=== PATIENT | male | born 1955 | race Caucasian/White ===

== ENCOUNTER → 2024-02-17 | Outpatient (CLI) | payer MEDICARE, BC, SELFPAY ==
[2024-02-17 16:09] LABS: Basophils % (Auto) 0 % (0-2.5); Eosinophils % (Auto) 0 % (0-10); Hematocrit 45.4 % (41.0-53.0); Hemoglobin 15.4 g/dL (13.5-16.0); Immature Granulocytes % (Auto) 0 % (0-0); Immature Granulocytes Auto 0.03 Thou/mm3 (0.00-0.00); Lymphocytes # (Auto) 1.3 Thou/mm3 (1.0-4.8); Lymphocytes % (Auto) 16 % (10-50); Mean Corpuscular HGB Conc 33.9 g/dl (31.0-37.0); Mean Corpuscular Volume 92 fL (80-100); Monocytes # (Auto) 0.7 Thou/mm3 (0.0-0.8); Monocytes % (Auto) 8 % (0-12); Neutrophils # (Auto) 6.2 Thou/mm3 (1.8-7.7); Neutrophils % (Auto) 75 % (37-80); Nucleated Red Blood Cell % 0 /100 WBC (0); Platelet Count 224 Thou/mm3 (140-440); RDW Standard Deviation 46.5 fL (35.1-43.9); Red Blood Count 4.96 Miln/mm3 (4.50-5.90); White Blood Count 8.3 Thou/mm3 (3.8-10.6)
[2024-02-17 16:27] LABS: Collection Type, Urine Clean Catch; Squamous Epithelial Cell,Urine 0 /hpf (0-5)
[2024-02-17 16:35] LABS: Alanine Aminotransferase 24 U/L (10-49); Albumin, Serum 4.3 gm/dL (3.4-4.8); Alkaline Phosphatase 116 U/L (46-116); Anion Gap 9 (7-16); Aspartate Amino Transferase 21 U/L (0-34); BUN/Creatinine Ratio 22 Ratio (12-20); Bilirubin,Direct 0.2 mg/dL (0.0-0.3); Bilirubin,Total 0.5 mg/dL (0.3-1.2); Blood Urea Nitrogen 11 mg/dL (9-23); Calcium 9.1 mg/dL (8.3-10.6); Carbon Dioxide 28.6 mMol/L (20.0-31.0); Chloride 101 mMol/L (98-107); Creatinine (Component) 0.5 mg/dL (0.6-1.3); Glucose 109 mg/dL (74-106); Osmolality,Calculated 277 (275-295); Phosphorous 2.8 mg/dL (2.4-5.1); Potassium 3.8 mMol/L (3.4-5.1); Sodium 139 mMol/L (136-145); Total Protein 6.6 gm/dL (5.7-8.2); eGFR > 60 See Note
[2024-02-17 16:51] LABS: Bilirubin,Urine Negative (Negative); Blood,Urine Negative (Negative); Color,Urine Yellow (Lt Yel-Yel); Glucose, Urine Negative (Negative); Ketones,Urine 2+ (Negative); Leukocyte Esterase,Urine Positive (Negative); Nitrite,Urine Positive (Negative); Protein,Urine Negative (Neg - Trace); RBC,Urine 5 /hpf (0-3); Urobilinogen,Urine Negative mg/dL (0.0-1.0); WBC,Urine 61 /hpf (0-5)
[2024-02-17 17:14] LABS: Clarity,Urine Hazy (Clear/Hazy)
== END | disposition home or self-care (01) ==
LOC: COPL 15:10
PROVIDERS: PCP Family Medicine; Referring Provider Family Medicine; Visit Provider Family Medicine
DX: E88.9 Metabolic disorder, unspecified (principal); E34.9 Endocrine disorder, unspecified; R53.81 Other malaise
CPT/HCPCS: 36415; 80048; 80076; 81001; 84100; 85025

== ENCOUNTER 2024-12-29 14:53 | Emergency (ER) | payer MEDICARE, BC, SELFPAY ==
[2024-12-29] VITALS (7 sets, daily range): BP systolic 111–133; BP diastolic 50–72; PULSE 74–91; RESP 16–18; TEMP 36.9–37.5; O2SAT 94–100; BMI 22.8
--- NOTE | 2024-12-29 15:28 | XR_ITS ---
Examination: CT abdomen with intravenous contrast CT pelvis with intravenous contrast 2-D coronal reconstructions 2-D sagittal reconstructions Date and time of exam: December 29, 2024, 1735 hours, comparison September 02, 2015 INDICATIONS: Sacral necrotic soft tissue nonhealing lesion months. CTDI: vol (mGy) 10.1 DLP: (mGycm) 535 Technique: Multiple axial sections of the abdomen and pelvis have been obtained. 64 slice high-resolution scanner used. 3 mm axial sections have been obtained, post intravenous injection 60 cc Isovue-370 2-D sagittal, coronal reconstructions obtained. Low dose protocols were performed. One or more of the following dose reduction techniques were used; automated exposure control, adjustment of the mA and/or KV according to patient size, use of iterative reconstruction technique. Findings: Small liver cysts No biliary tract dilatation Common bile duct 3 mm No pancreatic or adrenal mass No renal or ureteral calculi, no hydronephrosis Aortic calcification no aneurysmal dilatation Normal appendix Abundant stool in the colon Urinary bladder wall thickening up to 8 mm Transverse prostate dimension 4.4 cm Marked thickening of the rectal wall up to 18 mm Large soft tissue ulcer posterior to the right hip destroying cortex of the greater trochanter right hip with surrounding soft tissue infectious mass although no fluid-filled drainable abscess This large soft tissue defect also extends to the posterior right ischium with prominent bone destruction extending into the right inferior pubic ramus Soft tissue infectious focus posterior to the left ischium with osteomyelitis left ischium Soft tissue ulcer defect posterior to the sacral segments with cortical erosions axial images 209 mid sacral segments Also osteomyelitis destroying the L5 posterior spinous process, sagittal image 139 IMPRESSION: Marked thickening of the rectal wall, consider proctitis Large soft tissue ulcer posterior to the right hip destroying cortex of the greater trochanter Large soft tissue defect posterior to the right ischium destroying right ischium and inferior pubic ramus Soft tissue infectious focus posterior to the left ischium with osteomyelitis left ischium Soft tissue infection posterior to mid sacral segments with cortical erosions involving mid sacral segments posteriorly Osteomyelitis destroying the L5 posterior spinous process
--- NOTE | 2024-12-29 15:29 | XR_ITS ---
Examination: Foot bilateral, 6 views Technique: AP, oblique, lateral views of each foot total 6 views Date and time of exam: December 29, 2024 at 1542 hours INDICATIONS: Redness swelling and pain involving both feet, nonhealing sores FINDINGS: Severe osteopenia Soft tissue swelling dorsum of the right and left foot Early cortical erosion involving the posterior calcaneus bilaterally with soft tissue defects IMPRESSION: Early osteomyelitis involving posterior calcaneus bilaterally, consider bilateral MRI foot films follow-up .
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
[2024-12-29] MEDS: PIPER/TAZO INJ 4.5 GM in SODIUM CHLORIDE 0.9% (POP) 100 ML IV (16:15)
--- NOTE | 2024-12-29 16:27 | PC.NURSE ---
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
[2024-12-29 16:30] LABS: Basophils # (Auto) 0.0 Thou/mm3 (0.0-0.2); Basophils % (Auto) 0 % (0-2.5); Eosinophils # (Auto) 0.1 Thou/mm3 (0.0-0.5); Eosinophils % (Auto) 2 % (0-10); Hematocrit 35.3 % (41.0-53.0); Hemoglobin 10.8 g/dL (13.5-16.0); Immature Granulocytes Auto 0.04 Thou/mm3 (0.00-0.00); Lymphocytes # (Auto) 1.4 Thou/mm3 (1.0-4.8); Lymphocytes % (Auto) 24 % (10-50); Mean Corpuscular HGB Conc 30.6 g/dl (31.0-37.0); Mean Corpuscular Hemoglobin 26.7 pg (25.0-35.0); Mean Corpuscular Volume 87 fL (80-100); Monocytes # (Auto) 0.6 Thou/mm3 (0.0-0.8); Monocytes % (Auto) 10 % (0-12); Neutrophils # (Auto) 3.7 Thou/mm3 (1.8-7.7); Neutrophils % (Auto) 63 % (37-80); Nucleated Red Blood Cell # 0.00 Thou/mm3 (0.00-0.00); Nucleated Red Blood Cell % 0 /100 WBC (0); Platelet Count 410 Thou/mm3 (140-440); RDW Standard Deviation 50.6 fL (35.1-43.9); Red Blood Count 4.04 Miln/mm3 (4.50-5.90); White Blood Count 5.9 Thou/mm3 (3.8-10.6)
[2024-12-29 16:47] LABS: Sed Rate (ESR) 114 mm/hr (0-20)
[2024-12-29 16:52] LABS: Alanine Aminotransferase < 7 U/L (10-49); Albumin, Serum 3.3 gm/dL (3.4-4.8); Albumin/Globulin Ratio 1.1 (1.2-2.2); Alkaline Phosphatase 114 U/L (46-116); Anion Gap 7 (7-16); Aspartate Amino Transferase 11 U/L (0-34); BUN/Creatinine Ratio 10 Ratio (12-20); Bilirubin,Total 0.3 mg/dL (0.3-1.2); Blood Urea Nitrogen < 5 mg/dL (9-23); C-Reactive Protein 14.2 mg/dL (0.0-0.9); Calcium 8.4 mg/dL (8.3-10.6); Calcium (Corrected) 9.0 mg/dL (8.5-10.1); Carbon Dioxide 31.1 mMol/L (20.0-31.0); Chloride 104 mMol/L (98-107); Creatinine (Component) 0.5 mg/dL (0.6-1.3); Estimated Creatinine Clearance 138.0 mL/min (>60); Globulin 2.9 gm/dL (2.3-3.5); Glucose 131 mg/dL (74-106); Osmolality,Calculated 282 (275-295); Potassium 3.8 mMol/L (3.4-5.1); Sodium 142 mMol/L (136-145); Total Protein 6.2 gm/dL (5.7-8.2); eGFR > 60 See Note
[2024-12-29] MEDS: VANCOMYCIN/NS 1 GM IVPB 200 ML IV (16:58)
[2024-12-29] MEDS: BACLOFEN 10 MG TABLET PO (18:24)
--- NOTE | 2024-12-29 20:00 | PC.NURSE ---
Pt awake/alert/oriented x3. Respirations are even and unlabored. No s/s of acute distress noted. Waffle mattress placed, pt tolerated well. Repositioned pt. Call light within reach. Plan of care ongoing.
--- NOTE | 2024-12-29 22:27 | PC.NURSE ---
Transfer initiated requiring Ortho. we do not have coverage for the month of December. Pt has Osteomyelitis of Pelvis, bilateral ankles, L5 spinal process, and extensive cellulitis on his Right Hip. Clinicals sent to [facility]. Rajput transfered to MD ANDRE for EMTALA questions. Tong stated they are trying to get Diane their Ortho Surgeon.
--- NOTE | 2024-12-29 23:06 | PD.EDADDENDU ---
Emergency Room Addendum <Sarah Jaime - Last Filed: 12/30/24 02:35> Addendum Narrative: I took over the care from previous shift physician at 11 PM on 12/29/2024. See previous notes for complete H & P and ED course. I reviewed all diagnostic test results. My interpretation of the Foot x-ray is Early osteomyelitis involving posterior calcaneus bilaterally, consider bilateral MRI foot films follow-up. My review of the Abdomen/Pelvis CT report is Marked thickening of the rectal wall, consider proctitis. Large soft tissue ulcer posterior to the right hip destroying cortex of the greater trochanter. Large soft tissue defect posterior to the right ischium destroying right ischium and inferior pubic ramus. Soft tissue infectious focus posterior to the left ischium with osteomyelitis left ischium. Soft tissue infection posterior to mid sacral segments with cortical erosions involving mid sacral segments posteriorly. Osteomyelitis destroying the L5 posterior spinous process. Blood tests and urine tests Diagnoses include: Treatment here included 23:30 - I discussed the case with Mikel Fink About the presentation and exam and diagnostics and treatments here. And need of further care in their hospital. Patient pending transfer to tertiary facility with orthopedic capabilities. Signed out to Dr. Shah at 6 AM. Robert Gomez MD <Robert Gomez MD - Last Filed: 12/30/24 02:54> Addendum Narrative: I took over the care from previous shift physician, Dr. Fortune, at 11 PM on 12/29/2024. See previous notes for complete H & P and ED course. I reviewed all diagnostic test results. Diagnoses include: L5 osteomyelitis Left ischium osteomyelitis Sacral infection with cortical erosions Right ischium defect Iinferior pubic ramus defect Bilateral calcaneus osteomyelitis Right hip ulcer Right greater trochanter defect Treatment here included: Vancomycin Zosyn 23:30 - I discussed the case with Mikel Fink About the presentation and exam and diagnostics and treatments here. And need of further care there. Will review further and contact us. At 6 AM on 12/30/2024, the care of the patient was transferred to Dr. SHAH. During my watch, the patient remained stable. Robert Gomez MD
--- NOTE | 2024-12-29 23:36 | PC.NURSE ---
[facility] REJECTS AT THIS MOMENT STATING NO NEED FOR EMERGENT TRANSFER. JES REQUESTING TO TRY [facility]. INITIATED TRANSFER WITH [facility] STATED THEY DONT HAVE ORTHO COVERAGE UNTIL THE AM. WILL OPEN CASE AND WAIT TO HEAR BACK FROM THEM.
[2024-12-30] VITALS (9 sets, daily range): BP systolic 103–141; BP diastolic 45–71; PULSE 74–87; RESP 16–18; TEMP 36.7–37.6; O2SAT 95–100
--- NOTE | 2024-12-30 03:27 | PC.NURSE ---
Patient presents with an unstageable sacral pressure injury covered with eschar and slough, with drainage and odor. Bilateral heel/ankle Stage 2 pressure injuries observed with partial-thickness skin loss and moderate purulent yellow drainage, mild erythema, and faint odor noted. All dressings were removed, wounds were cleansed and new dressings were applied. Patient was repositioned to offload pressure areas, and heel protectors were applied. Patient tolerated dressing changes with minimal discomfort (pain 3/10).
[2024-12-30] MEDS: BACLOFEN 10 MG TABLET 20 MG PO ×3 (06:00→18:05)
--- NOTE | 2024-12-30 06:22 | PC.NURSE ---
[facility] declined due to region, states their ortho declined due to it their orthopedist not being able to do sacral and ischeal ulcers. Transfer Nurse states they recommend a plastic Surgeon.
--- NOTE | 2024-12-30 06:34 | PD.EDADDENDU ---
Emergency Room Addendum Addendum Narrative: 0600: Care assumed from Dr. Gomez, the previous shift emergency physician. Past medical, surgical, social and family history reviewed. Vitals and home medications reviewed. I will assume the care of the patient at this time, pending transfer. Please refer to the emergency department record for history and examination from initial visit.? Physical exam by me shows patient under no acute distress at this time. 0750: Spoke to Pippa from [facility]. 1014: Discussed test HPI, PMHx, lab, radiology results and/or management with Dr. Chung. He states we have no ortho sfdc solution architect and he recommends ortho for bone debridement. 1116: Discussed test HPI, PMHx, lab, radiology results and/or management with ortho Dr. Juares from the [facility] group. Their facilities do not have the capabilities the patient needs. 1143: Spoke to the [facility] transfer nurse, they are reviewing the case. 1732: [facility] declined. [facility] is still reviewing the case. [facility] is at capacity but they are still present the case to the doctors. 1800: Patient was signed out to the leather scrubber provider. Past medical, surgical, social and family history reviewed. Vitals and home medications reviewed. Results and treatment plan discussed. They will assume the care of the patient at this time and will follow the patient. Results Objective Laboratory: Laboratory Last Values WBC 5.9 Thou/mm3 (3.8-10.6) 12/29/24 16:05 RBC 4.04 Miln/mm3 (4.50-5.90) L 12/29/24 16:05 Hgb 10.8 g/dL (13.5-16.0) L 12/29/24 16:05 Hct 35.3 % (41.0-53.0) L 12/29/24 16:05 MCV 87 fL (80-100) 12/29/24 16:05 MCH 26.7 pg (25.0-35.0) 12/29/24 16:05 MCHC 30.6 g/dl (31.0-37.0) L 12/29/24 16:05 RDW Std Deviation 50.6 fL (35.1-43.9) H 12/29/24 16:05 Plt Count 410 Thou/mm3 (140-440) 12/29/24 16:05 Neut % (Auto) 63 % (37-80) 12/29/24 16:05 Lymph % (Auto) 24 % (10-50) 12/29/24 16:05 Garfield % (Auto) 10 % (0-12) 12/29/24 16:05 Eos % (Auto) 2 % (0-10) 12/29/24 16:05 Baso % (Auto) 0 % (0-2.5) 12/29/24 16:05 Neut # (Auto) 3.7 Thou/mm3 (1.8-7.7) 12/29/24 16:05 Lymph # (Auto) 1.4 Thou/mm3 (1.0-4.8) 12/29/24 16:05 Garfield # (Auto) 0.6 Thou/mm3 (0.0-0.8) 12/29/24 16:05 Eos # (Auto) 0.1 Thou/mm3 (0.0-0.5) 12/29/24 16:05 Baso # (Auto) 0.0 Thou/mm3 (0.0-0.2) 12/29/24 16:05 Immature Gran # (Auto) 0.04 Thou/mm3 (0.00-0.00) H 12/29/24 16:05 Absolute Nucleated RBC 0.00 Thou/mm3 (0.00-0.00) 12/29/24 16:05 Immature Gran % 1 % (0-0) H 12/29/24 16:05 Nucleated RBC % 0 /100 WBC (0) 12/29/24 16:05 ESR 114 mm/hr (0-20) H 12/29/24 16:05 Sodium 142 mMol/L (136-145) 12/29/24 16:05 Potassium 3.8 mMol/L (3.4-5.1) 12/29/24 16:05 Chloride 104 mMol/L (98-107) 12/29/24 16:05 Carbon Dioxide 31.1 mMol/L (20.0-31.0) H 12/29/24 16:05 Anion Gap 7 (7-16) 12/29/24 16:05 BUN < 5 mg/dL (9-23) L 12/29/24 16:05 Creatinine 0.5 mg/dL (0.6-1.3) L 12/29/24 16:05 Estim Creat Clear Calc 138.0 mL/min (>60) 12/29/24 16:05 eGFR > 60 See Note (60-) 12/29/24 16:05 BUN/Creatinine Ratio 10 Ratio (12-20) L 12/29/24 16:05 Glucose 131 mg/dL (74-106) H 12/29/24 16:05 Calculated Osmolality 282 (275-295) 12/29/24 16:05 Calcium 8.4 mg/dL (8.3-10.6) 12/29/24 16:05 Corrected Calcium 9.0 mg/dL (8.5-10.1) 12/29/24 16:05 Total Bilirubin 0.3 mg/dL (0.3-1.2) 12/29/24 16:05 AST 11 U/L (0-34) 12/29/24 16:05 ALT < 7 U/L (10-49) L 12/29/24 16:05 Alkaline Phosphatase 114 U/L (46-116) 12/29/24 16:05 C-Reactive Prot, Quant 14.2 mg/dL (0.0-0.9) H 12/29/24 16:05 Total Protein 6.2 gm/dL (5.7-8.2) 12/29/24 16:05 Albumin 3.3 gm/dL (3.4-4.8) L 12/29/24 16:05 Globulin 2.9 gm/dL (2.3-3.5) 12/29/24 16:05 Albumin/Globulin Ratio 1.1 (1.2-2.2) L 12/29/24 16:05 Imaging: Procedure(s): XR foot comp BI min 3V Accession Number(s): [id number] cc: Ted Rutherford DO; Justin Duron MD; Diana Fortune MD~ Examination: Foot bilateral, 6 views Technique: AP, oblique, lateral views of each foot total 6 views Date and time of exam: December 29, 2024 at 1542 hours INDICATIONS: Redness swelling and pain involving both feet, nonhealing sores FINDINGS: Severe osteopenia Soft tissue swelling dorsum of the right and left foot Early cortical erosion involving the posterior calcaneus bilaterally with soft tissue defects IMPRESSION: Early osteomyelitis involving posterior calcaneus bilaterally, consider bilateral MRI foot films follow-up . Dictated By: Justin Duron MD Procedure(s): CT abdomen pelvis w con Accession Number(s): [id number] cc: Ted Rutherford DO; Justin Duron MD; Diana Fortune MD~ Examination: CT abdomen with intravenous contrast CT pelvis with intravenous contrast 2-D coronal reconstructions 2-D sagittal reconstructions Date and time of exam: December 29, 2024, 1735 hours, comparison September 02, 2015 INDICATIONS: Sacral necrotic soft tissue nonhealing lesion months. CTDI: vol (mGy) 10.1 DLP: (mGycm) 535 Technique: Multiple axial sections of the abdomen and pelvis have been obtained. 64 slice high-resolution scanner used. 3 mm axial sections have been obtained, post intravenous injection 60 cc Isovue-370 2-D sagittal, coronal reconstructions obtained. Low dose protocols were performed. One or more of the following dose reduction techniques were used; automated exposure control, adjustment of the mA and/or KV according to patient size, use of iterative reconstruction technique. Findings: Small liver cysts No biliary tract dilatation Common bile duct 3 mm No pancreatic or adrenal mass No renal or ureteral calculi, no hydronephrosis Aortic calcification no aneurysmal dilatation Normal appendix Abundant stool in the colon Urinary bladder wall thickening up to 8 mm Transverse prostate dimension 4.4 cm Marked thickening of the rectal wall up to 18 mm Large soft tissue ulcer posterior to the right hip destroying cortex of the greater trochanter right hip with surrounding soft tissue infectious mass although no fluid-filled drainable abscess This large soft tissue defect also extends to the posterior right ischium with prominent bone destruction extending into the right inferior pubic ramus Soft tissue infectious focus posterior to the left ischium with osteomyelitis left ischium Soft tissue ulcer defect posterior to the sacral segments with cortical erosions axial images 209 mid sacral segments Also osteomyelitis destroying the L5 posterior spinous process, sagittal image 139 IMPRESSION: Marked thickening of the rectal wall, consider proctitis Large soft tissue ulcer posterior to the right hip destroying cortex of the greater trochanter Large soft tissue defect posterior to the right ischium destroying right ischium and inferior pubic ramus Soft tissue infectious focus posterior to the left ischium with osteomyelitis left ischium Soft tissue infection posterior to mid sacral segments with cortical erosions involving mid sacral segments posteriorly Osteomyelitis destroying the L5 posterior spinous process Dictated By: Justin Duron MD
--- NOTE | 2024-12-30 07:14 | PC.CC ---
Addendum entered by Christiano Fierro RN 12/30/24 19:30: Transfer packet w/ CDX1 given to dental assistant medical assistant Lydia - handoff given. Per Dr. Fortune, she spoke to ortho w/ [facility] and he recommended plastics and he is reaching out to the plastic team.? Addendum entered by Christiano Fierro RN 12/30/24 17:33: 1732: spoke to Dr. Shah, status update provided. As of now, [facility] AND [facility] are reviewing. Addendum entered by Christiano Fierro RN 12/30/24 17:17: 1711: received call from Lana garcia/ [facility] TC to f/u if pt still needed to be transferred. Informed her that he still does. Gave her the names of the other facilities who have reviewed and declined and who are reviewing. She stated her MD is still reviewing as well. I provided the ED contact information for any calls after 1929. Addendum entered by Christiano Fierro RN 12/30/24 16:38: 1632: Pino w/ [facility] called back requesting images to be uploaded. She stated they do not have [employer]. She spoke to her film dept and was informed that Bibi Morales would need to have [employer]. I asked her if she can send me a link via email and I can upload the images from the CD, she stated she is unable to send a link. She then stated to wait on the images. After reviewing the clinicals, she will reach out to the general surgery team 1st, then ortho, then team. She will call me back after discussing case with them. Addendum entered by Christiano Fierro RN 12/30/24 16:21: transfer packet created w/ CD X1. Addendum entered by Christiano Fierro RN 12/30/24 15:05: 1452: called [facility], they are having phone issues. I was transferred to the TC, transfer request initiated. No clinicals received, resubmitted clinicals at this time. Addendum entered by Christiano Fierro RN 12/30/24 14:48: 1436: received call from Sandra garcia/ [facility]. pt declined at this time - no ortho has responded. She stated she reached out to 3 different orthopedic doctors. Informed her I will re-submit tomorrow if patient has not been accepted elsewhere. Addendum entered by Christiano Fierro RN 12/30/24 12:32: 1232: attempted multiple times on different phone lines to call [facility] TC, calls unable to go through. Will try again later Addendum entered by Christiano Fierro RN 12/30/24 12:13: 1214: clinicals sent to [facility]. Addendum entered by Christiano Fierro RN 12/30/24 11:47: 1141: received VM from [facility] w/ [facility]. She stated [facility] declined - services not avail, [place] declined - services not avail, and [facility] - services not avail. 1141: Melissa spoke to Dr. Shah. She stated she will review and present to her team and will call back with a determination. 1138: spoke to Melissa garcia/ [facility], transfer initiated. Addendum entered by Christiano Fierro RN 12/30/24 11:35: 1125: clinicals to [facility] went through Addendum entered by Christiano Fierro RN 12/30/24 11:15: 1111: received call from Dr. Shah. She stated she spoke to an orthopedic w/ [facility]. [facility] stated that Dr. Brady Edward was the ortho oncall. Per Dr. Shah, he rec transfer to [facility] for multidisciplinary specilities such as gen nakia, ortho, and plastics. Informed Dr. Shah, [facility] is reviewing. Will send to [facility] as well. Addendum entered by Christiano Fierro RN 12/30/24 11:02: 1055: spoke to [facility] w/ [facility], transfer request made. She will reach out to ortho for peer to peer and call back. 1032: sent clinicals to [facility]. Addendum entered by Christiano Fierro RN 12/30/24 10:02: 1001: Renu garcia/ [facility] called back. She stated [facility] is declining this patient - at capacity. Can check back later this afternoon w/ Emma tijerina. Renu will keep it on their board. Addendum entered by Christiano Fierro RN 12/30/24 09:41: 0928: Pippa spoke to Dr Shah. Plastics recommendations were provided to Dr. Shah. She stated she will reach out the general surgeon oncajit. Addendum entered by Christiano Fierro RN 12/30/24 09:40: 0926: received call back from Pippa garcia/ [facility]. Per Chan (ortho) this is not an ortho case, it's plastics. Per Dr. Taylor Dougherty (plastics), pt can f/u as outpatient once pt is stabilized. Debridement can be done by general surgeon. Outpatient Referral can be sent to: [facility] [address] [address] P: F: - PLEASE FAX REFERRAL Addendum entered by Christiano Fierro RN 12/30/24 09:23: 0917: Spoke to Robbie garcia/ [facility] TC, he confirmed receipt of clinicals and imaging. I did not have to upload images via [employer]. He stated he will have team review and will call back with redetermination 0843: Sent images to [facility] via [employer]. Addendum entered by Christiano Fierro RN 12/30/24 08:52: 0843: sent clinicals to [facility] Addendum entered by Christiano Fierro RN 12/30/24 08:49: 0848: received call from Pippa garcia/ [facility], she is still waiting to here back from [facility]. She has paged him twice. She will call back when she hears back from him. Addendum entered by Christiano Fierro RN 12/30/24 08:41: 0840: received call from Alka garcia/ , she stated [facility] has declined - they are at capacity. Greg diaz states pt needs a HLOC. Addendum entered by Christiano Fierro RN 12/30/24 07:52: 0746: Pippa spoke to Dr. Shah, she will will present to ortho and call back. 0742: spoke to [facility] garcia/ [facility]. 0737: Alka and Dr. Shah discussed case, she will present to ortho and call back. 0734: spoke to Alka garcia/ [facility], transfer initiated. Addendum entered by Christiano Fierro RN 12/30/24 07:34: 0720: spoke Renu garcia/ [facility]. She will review the clinicals and present to ortho. She will call back Original Note: 7013: Sent clinicals and imaging to [facility], GARY, and . CD created 0705: spoke to Dr. Shah regarding consult with Dr. Chung. She stated she could not find it in the notes wither that Dr. Chung had been consulted. She stated since it is affecting he ishium, this will be ortho. She requested to keep trying to transfer.
[2024-12-30] MEDS: PIPER/TAZO 3.375 GM PREMIX 3.375 GM/50 ML BAG IV ×3 (07:30→22:37)
[2024-12-30] MEDS: VANCOMYCIN/NS 1 GM IVPB 200 ML IV ×3 (07:49→22:36)
--- NOTE | 2024-12-30 19:07 | PD.EDADDENDU ---
Emergency Room Addendum <Maria M Canas - Last Filed: 12/30/24 23:26> Addendum Narrative: 1800: Care assumed from Dr. Shah, the previous shift emergency physician. Past medical, surgical, social and family history reviewed. Vitals and home medications reviewed. Results and treatment plan discussed. I will assume the care of the patient at this time and will follow the patient, pending transfer. Please refer to the emergency department record for history and examination from initial visit. Discussed case with [facility]. Discussed patients ED course, exam findings, labs, and radiology results. They state they are at capacity at this time. Discussed case with [facility]. Discussed patients ED course, exam findings, labs, and radiology results. States they will need to consult with their plastics team. Care signed out to Dr. Gomez (emergency physician). Past medical, surgical, social and family history reviewed. Vitals and home medications reviewed. Results and treatment plan discussed. They will assume the care of the patient at this time and will follow the patient, pending transfer. <Diana Fortune MD - Last Filed: 12/30/24 23:34> Addendum Narrative: 1800: Care assumed from Dr. Shah, the previous shift emergency physician. Past medical, surgical, social and family history reviewed. Vitals and home medications reviewed. Results and treatment plan discussed. I will assume the care of the patient at this time and will follow the patient, pending transfer. Please refer to the emergency department record for history and examination from initial visit. Discussed case with [facility]. Discussed patients ED course, exam findings, labs, and radiology results. They state they are at capacity at this time. Discussed case with [facility]. Discussed patients ED course, exam findings, labs, and radiology results. States they will need to consult with their plastics team. Care signed out to Dr. Gomez (emergency physician). Past medical, surgical, social and family history reviewed. Vitals and home medications reviewed. Results and treatment plan discussed. They will assume the care of the patient at this time and will follow the patient, pending transfer.
--- NOTE | 2024-12-30 20:30 | PC.NURSE ---
Pt is alert/oriented x3. Respirations are even and unlabored. No s/s of acute distress noted. Discussed plan of care, verbalized understanding. Bed to lowest position, all belongings and call light within reach.
--- NOTE | 2024-12-30 21:35 | PC.NURSE ---
[facility] Transfer Center Nurse Brian states their plastics deots is nto avalaible to consult at the moment and state they are declining at the moment
[2024-12-30 21:52] LABS: Vancomycin,Trough 15.9 mcg/mL (5.0-10.0)
--- NOTE | 2024-12-30 23:43 | EDNOTE_ITS ---
Emergency Room Addendum <Maria M Canas - Last Filed: 12/31/24 03:01> Addendum Narrative: I took over the care from previous shift physician, Dr. Fortune, at 11:30PM on 12/30/2024. See previous notes for complete H & P and ED course. I reviewed all diagnostic test results. Diagnoses include: L5 osteomyelitis Left ischium osteomyelitis Sacral infection with cortical erosions Right ischium defect Iinferior pubic ramus defect Bilateral calcaneus osteomyelitis Right hip ulcer Right greater trochanter defect Treatment here included: Vancomycin Zosyn At 6 AM on 12/31/2024, the care of the patient was transferred to Dr. PARK. During my watch, the patient remained stable. Robert Gomez MD <Robert Gomez MD - Last Filed: 12/31/24 03:02> Addendum Narrative: I took over the care from previous shift physician, Dr. Fortune, at 11:30PM on 12/30/2024. See previous notes for complete H & P and ED course. I reviewed all diagnostic test results. Diagnoses include: L5 osteomyelitis Left ischium osteomyelitis Sacral infection with cortical erosions Right ischium defect Iinferior pubic ramus defect Bilateral calcaneus osteomyelitis Right hip ulcer Right greater trochanter defect [facility] reviewing to consider accepting patient for further care. At 6 AM on 12/31/2024, the care of the patient was transferred to Dr. PARK. During my watch, the patient remained stable. Robert Gomez MD
[2024-12-31] MEDS: BACLOFEN 10 MG TABLET 20 MG PO ×2 (00:36→06:33)
[2024-12-31 02:05] VITALS: BP 108/51; PULSE 79; RESP 19; TEMP 37.2; O2SAT 97
[2024-12-31 04:00] VITALS: BP 115/56; PULSE 83; RESP 16; TEMP 36.8; O2SAT 95
[2024-12-31 06:31] VITALS: BP 111/55; PULSE 81; RESP 17; TEMP 37.3; O2SAT 98
[2024-12-31] MEDS: VANCOMYCIN/NS 1 GM IVPB 200 ML IV (06:32)
[2024-12-31] MEDS: PIPER/TAZO 3.375 GM PREMIX 3.375 GM/50 ML BAG IV (06:33)
--- NOTE | 2024-12-31 06:45 | PC.NURSE ---
Pt c/o dry cough, requested cough medicine. Respiration are even and unlabored. No s/s of acute distress noted. Dr. Shah made aware, no new orders received at this time.
--- NOTE | 2024-12-31 06:54 | PD.EDADDENDU ---
Emergency Room Addendum <Batsheva Shah MD - Last Filed: 12/31/24 07:39> Addendum Narrative: Discussed with resident at [facility]. Will present to attending. Accepted ED to ED <Priscilapaulino Dial - Last Filed: 12/31/24 10:41> Addendum Narrative: 0600: Care assumed from Dr. Gomez, the previous shift emergency physician. Past medical, surgical, social and family history reviewed. Vitals and home medications reviewed. I will assume the care of the patient at this time, pending transfer. Please refer to the emergency department record for history and examination from initial visit.?The following addendum documentation note is intended to reflect any pending information, findings, or radiology results not included in the patient?s initial chart. Discussed with resident at [facility]. Will present to attending. Accepted ED to ED.
--- NOTE | 2024-12-31 07:13 | PC.ADMIT ---
Per Charge nurse Cat's note, [facility] has declined. 0714: received call from Alda garcia/ [facility] to f/u on status of the patient. Informed her the patient was still in the ED. She stated they are reviewing and will call back with a determination
--- NOTE | 2024-12-31 07:36 | PC.CC ---
Addendum entered by Christiano Fierro RN 12/31/24 12:57: Attempted to call [facility] yael a few times to provide transport ETA, went straight to a busy signal. They had issues with their phone lines yesterday Addendum entered by Christiano Fierro RN 12/31/24 12:56: 0748: transfer packet w/ CDx1 taken to ED and given to optical glass silverer Lanise. Original Note: 0729: informed Dr. Shah. She stated ground transport is appropriate. Will arrange. Printed updated notes to add to the transfer packet. 0728: received call from Naomi garcia/ [facility]. Dr. Bo Camacho accepted pt ED to ED. [facility]. call report to [phone] Per Charge nurse Cat's note, [facility] has declined. 0714: received call from Alda CERVANTES to f/u on status of the patient. Informed her the patient was still in the ED. She stated they are reviewing and will call back with a determination
--- NOTE | 2024-12-31 09:47 | PC.NURSE ---
gave report to raisa at [facility] ER
== END 2024-12-31 09:28 | disposition short-term general hospital (02) ==
PROVIDERS: Emergency Medicine; Emergency Provider Emergency Medicine; PCP Family Medicine
DX: M46.28 Osteomyelitis of vertebra, sacral and sacrococcygeal region (principal)
CPT/HCPCS: 36415; 73630; 74177; 80053; 80202; 85025; 85652; 86140; 87040; 87077; 87186; 96365; 96366; 99283; A4649; J2543; J3373; J3490; Q9967; A9270

== ENCOUNTER → 2025-02-12 | Outpatient (CLI) | payer MEDICARE, SELFPAY | END | disposition home or self-care (01) | LOC: SLDO 16:55 | PROVIDERS: Referring Provider Family Medicine; Visit Provider Family Medicine | DX: L08.9 Local infection of the skin and subcutaneous tissue, unspecified (principal) | CPT/HCPCS: 87070; 87077; 87186; 87205 ==

== ENCOUNTER 2025-02-28 12:56 | Emergency (ER) | payer MEDICARE, SELFPAY ==
[2025-02-28 13:16] VITALS: PULSE 90; RESP 20; O2SAT 98; BMI 21.2
--- NOTE | 2025-02-28 13:31 | XR_ITS ---
EXAMINATION: AP pelvis 2 views TECHNIQUE: AP portable supine pelvis hips in neutral position, AP portable supine pelvis hips abduction position Date and time: February 28, 2025, 1340 hours INDICATIONS: Sacral ulcers FINDINGS: Severe osteopenia Ramy cortical bone destruction involving the ischium on the right No pathologic fracture Suspicious also for erosions involving the greater trochanter right hip IMPRESSION:: Cortical bone destruction right ischium and greater trochanter right hip, please see the CT pelvis December 29, 2024 exam, consider repeat CT pelvis without contrast
--- NOTE | 2025-02-28 13:31 | XR_ITS ---
EXAMINATION: AP chest single view TECHNIQUE: AP portable semiupright chest single view Date and time: February 28, 2025, 1350 hours, comparison 11/15/2015 INDICATIONS: Fever lower back pain today. FINDINGS: Normal heart size Lungs are clear. Prominent osteopenia IMPRESSION: No pneumonia identified
[2025-02-28 13:32] VITALS: BP 103/60; PULSE 88; RESP 18; TEMP 37.5; O2SAT 98
--- NOTE | 2025-02-28 13:36 | PD.EDWOUND ---
ED Wound/Laceration-RME/HPI General Chief Complaint: Wound/Laceration Stated Complaint: BACK/SACRAL WOUND PAIN, FEVER Time Seen by Provider: 02/28/25 13:18 Arrival date/time: 02/28/25 12:56 69-year-old male patient with significant history of paraplegia, 37 years ago, was brought in by EMS for evaluation regarding worsening pressure ulcer x 3 sacrum and bilateral trochanteric area. Patient developed pressure ulcer for several months ago, was transferred to [facility] last December 31 stayed there for more than a month, had multiple debridement and was discharged home. Patient lives alone. Patient told me that he is needing help at this time because the pressure ulcer is getting worse. He told me he had a fever earlier today. Sometimes a friend visit him and help him with a dressing. Initially was followed by wound care nurse however for the last few days, however he was told that the wound is getting worst, and was advised to go to the emergency room. Patient denies any other complaints. Related Data Home Medications ?Medication ?Instructions ?Recorded ?Confirmed baclofen 10 mg tablet 20 mg PO QID MUSCLE SPASM ##0 12/17/13 oxybutynin chloride 5 mg tablet 5 mg PO QID BLADDER SPASM ##0 12/17/13 thyroid (pork) 32.5 mg tablet (WP PO QDAY HYPOTHYROID ##0 12/17/13 Thyroid) Previous Rx's ?Medication ?Instructions ?Recorded ibuprofen 600 mg tablet 600 mg PO Q8HR PRN PAIN #30 tabs 11/15/15 Allergies Allergy/AdvReac Type Severity Reaction Status Date / Time No Known Allergies Allergy Verified 02/28/25 13:42 Review of Systems Review of Systems Narrative Review of Systems: Review of system reviewed and within normal limits except mentioned in HPI ED Exam Narrative Physical exam: VITAL SIGNS: Reviewed. GENERAL APPEARANCE: Alert and interactive, follows commands, no acute distress, HEAD AND FACE: Non-traumatic. ENT: PERRL, pink conjunctivitis, eyelid no trauma, Mucous membrane moist. NECK: Supple, nontender, no nuchal rigidity. CHEST: No tenderness, no crepitus, no paradoxical movement, no retractions. LUNGS: Clear, well ventilated, symmetric, no rales, no wheezing, no ronchi, no stridor, good breath sounds bilaterally. HEART: Regular rate, regular rhythm, no murmur, no gallops. ABDOMEN: Soft, positive bowel sounds, nondistended, no guarding, nontender, no rebound, no masses, RECTAL: A large defect on the sacral area,/ulcer, more than the size of the fist with yellowish discharge, a large defect was also noted on the left trochanteric area, with discharge, no necrosis noted unstageable, with visible bone noted a small defect noted on the right trochanteric area no necrosis noted GENITAL: Deferred. NEUROLOGICAL: Gross motor function intact sensory function intact upper extremity, Appropriate for age. No motor function bilateral lower extremity SKIN: Color pink, dry, no rash, no lacerations, no abrasions, no contusions. LYMPHATICS: Deferred. Course Quality Measures none Orders Category Date Time Status COVID-19 Screening Questionnaire NOW Care 02/28/25 16:25 Active Consult to General Surgery Stat Cons 02/28/25 16:24 Ordered Diet Regular Diet 02/28/25 Dinner Active XR chest 1V portable Stat Exams 02/28/25 13:31 Completed XR pelvis 1-2V Stat Exams 02/28/25 13:31 Completed Blood Culture (Lab) Stat Lab 02/28/25 14:08 Received CBC [CBC] Stat Lab 02/28/25 14:05 Completed CMP [Comprehensive Metabolic Panel] Stat Lab 02/28/25 14:05 Completed Lactate (Lactic Acid) Stat Lab 02/28/25 14:05 Completed Mag [Magnesium] Stat Lab 02/28/25 14:05 Completed Procalcitonin Stat Lab 02/28/25 14:05 Completed UA, C/S IF [Urinalysis, C/S if Indicated] Stat Lab 02/28/25 15:00 Completed Urine Culture Stat Lab 02/28/25 15:00 Received Piper/Tazo 3.375 gm Premix [Zosyn] Med 02/28/25 13:59 Discontinued 3.375 gm in 50 ml IV X1 Late Tray Request Routine Oth 02/28/25 18:14 Active Referral Basic Acoustic Analyst NOW 02/28/25 13:32 Active Vital Signs Vital signs: Vital Signs Temperature 99.5 F 02/28/25 13:32 Pulse Rate 88 02/28/25 13:32 Respiratory Rate 18 02/28/25 13:32 Blood Pressure 103/60 02/28/25 13:32 Pulse Oximetry (%) 98 02/28/25 13:32 Oxygen Delivery Method Room Air 02/28/25 13:32 Wound / Laceration MDM Narrative MDM Narrative:: 69-year-old male patient with significant history of paraplegia, 37 years ago, was brought in by EMS for evaluation regarding worsening pressure ulcer x 3 sacrum and bilateral trochanteric area. Patient developed pressure ulcer for several months ago, was transferred to [facility] last December 31 stayed there for more than a month, had multiple debridement and was discharged home. Patient lives alone. Patient told me that he is needing help at this time because the pressure ulcer is getting worse. He told me he had a fever earlier today. Sometimes a friend visit him and help him with a dressing. Initially was followed by wound care nurse however for the last few days, however he was told that the wound is getting worst, and was advised to go to the emergency room. Patient denies any other complaints. Patient workup today came back with slight anemia of 10.7, urinalysis positive for UTI. X-ray of the pelvis showed Cortical bone destruction right ischium and greater trochanter right hip, please see the CT pelvis December 29, 2024 exam, consider repeat CT pelvis without contrast I spoke with Dr. Chung, general surgeon who told me that patient does not need to be admitted, patient wound needs to be changed daily with wet-to-dry. Patient can be transferred to SNF. I spoke with hospitalist, who told me that patient is okay to be transferred to SNF there is no need to admit the patient in this hospital or inpatient. Care transferred to Dr Fortune for final disposition pending social services designee evaluation and placement for SNF Patient data External records reviewed:: None Clinical information provided by:: patient Social determinants that could affect healthcare access:: substance use Patient has the following chronic illnesses:: History of paraplegia, history of multiple pressure ulcers How is presenting disease/condition affected by chronic disease/condition?: exacerbated by Evaluation data The following diagnostics were reviewed and interpreted by me:: lab results and radiology exam(s) Lab and/or radiology exams considered but not ordered:: None Interpretation Summary: See above Medications / Prescriptions Medications or Prescriptions considered but not ordered:: None Medication administrations:: Medication Administration History Discontinued Medications Piperacillin/Tazobactam/Dextrose (Zosyn) 3.375 gm in 50 mls @ 100 mls/hr IV X1 ONE; Protocol Stop: 02/28/25 14:28 Last Infusion: 02/28/25 16:02 Dose: Infused Documented By: Admin: 02/28/25 15:32 Dose: 100 mls/hr Documented By: TAJ IV Zosyn Consultations Consultation(s) initiated? (list below): No Diagnosis Wound Differential Diagnosis: abscess and avulsion of skin Most likely diagnosis given after review of the tests above:: Chronic pressure ulcers sacrum bilateral hip and bilateral heel, paraplegia Admission Indicated Admission indicated?: not indicated Admission Request Was there a request for admission?: No Disposition Plan Disposition Plan: other (specify) Discharge Plan Prescriptions/Referrals Prescriptions/Med Rec: No Action baclofen 10 MG tablet 20 mg PO QID Qty: 0 oxybutynin chloride 5 MG tablet 5 mg PO QID Qty: 0 thyroid (pork) [WP Thyroid] 32.5 MG tablet PO QDAY Qty: 0 ibuprofen 600 MG tablet 600 mg PO Q8HR PRN (Reason: PAIN) Qty: 30 0RF Referrals: Ted Rutherford DO [Primary Care Provider, Family Practice] - In 1 week Problem List Clinical Impression: Pressure ulcer, Chronic paraplegia Patient/Caregiver Discharge Instructions Print Language: Lithuanian
[2025-02-28 14:16] LABS: Lactate (Lactic Acid) 1.1 mMol/L (0.4-2.0)
[2025-02-28 14:19] LABS: Basophils # (Auto) 0.0 Thou/mm3 (0.0-0.2); Basophils % (Auto) 1 % (0-2.5); Eosinophils # (Auto) 0.2 Thou/mm3 (0.0-0.5); Eosinophils % (Auto) 3 % (0-10); Hematocrit 34.3 % (41.0-53.0); Hemoglobin 10.7 g/dL (13.5-16.0); Immature Granulocytes Auto 0.03 Thou/mm3 (0.00-0.00); Lymphocytes # (Auto) 1.2 Thou/mm3 (1.0-4.8); Lymphocytes % (Auto) 19 % (10-50); Mean Corpuscular HGB Conc 31.2 g/dl (31.0-37.0); Mean Corpuscular Hemoglobin 25.3 pg (25.0-35.0); Mean Corpuscular Volume 81 fL (80-100); Monocytes # (Auto) 0.7 Thou/mm3 (0.0-0.8); Monocytes % (Auto) 11 % (0-12); Neutrophils # (Auto) 4.2 Thou/mm3 (1.8-7.7); Neutrophils % (Auto) 67 % (37-80); Nucleated Red Blood Cell # 0.00 Thou/mm3 (0.00-0.00); Nucleated Red Blood Cell % 0 /100 WBC (0); Platelet Count 407 Thou/mm3 (140-440); RDW Standard Deviation 49.8 fL (35.1-43.9); Red Blood Count 4.23 Miln/mm3 (4.50-5.90); White Blood Count 6.2 Thou/mm3 (3.8-10.6)
--- NOTE | 2025-02-28 14:44 | PC.SS ---
Patient came into the ER due to his wounds on his back. Wound care provider who informed him that he would need to go into the ER b/c his wounds were sever. Patient recently hospitalized at [facility]. Wound care was set up for 02.27. Patient had a friend who was coming in to help with the wound. Patient bedside nurse had concerns due to patient living alone and not having a provider in the home. RN, Charge Nurse, SS filled APS report and spoke to Janae. SS faxed report as well. Janae requested to be contacted once patient has a discharge plan. SS verbalized understanding.
[2025-02-28 14:46] LABS: Albumin, Serum 3.6 gm/dL (3.4-4.8); Albumin/Globulin Ratio 1.1 (1.2-2.2); Alkaline Phosphatase 96 U/L (46-116); Anion Gap 8 (7-16); Aspartate Amino Transferase 12 U/L (0-34); BUN/Creatinine Ratio 12 Ratio (12-20); Bilirubin,Total 0.2 mg/dL (0.3-1.2); Blood Urea Nitrogen 6 mg/dL (9-23); Calcium 8.5 mg/dL (8.3-10.6); Calcium (Corrected) 8.8 mg/dL (8.5-10.1); Carbon Dioxide 28.6 mMol/L (20.0-31.0); Chloride 102 mMol/L (98-107); Creatinine (Component) 0.5 mg/dL (0.6-1.3); Estimated Creatinine Clearance 128.8 mL/min (>60); Globulin 3.3 gm/dL (2.3-3.5); Glucose 121 mg/dL (74-106); Magnesium 1.6 mg/dL (1.6-2.6); Osmolality,Calculated 276 (275-295); Potassium 3.8 mMol/L (3.4-5.1); Procalcitonin 0.14 ng/ml (0.0-0.49); Sodium 139 mMol/L (136-145); Total Protein 6.9 gm/dL (5.7-8.2); eGFR > 60 See Note
[2025-02-28 14:49] LABS: Alanine Aminotransferase < 7 U/L (10-49)
[2025-02-28 15:28] LABS: Collection Type, Urine Catheter
[2025-02-28] MEDS: PIPER/TAZO 3.375 GM PREMIX 3.375 GM/50 ML BAG IV (15:32)
[2025-02-28 15:38] LABS: Bilirubin,Urine Negative (Negative); Blood,Urine Negative (Negative); Clarity,Urine Clear (Clear/Hazy); Color,Urine Lt-Yellow (Lt Yel-Yel); Glucose, Urine Negative (Negative); Ketones,Urine Negative (Negative); Leukocyte Esterase,Urine Positive (Negative); Nitrite,Urine Negative (Negative); PH,Urine 6.5 (5.0-7.0); Protein,Urine Trace (Neg - Trace); RBC,Urine 1 /hpf (0-3); Specific Gravity,Urine 1.009 (1.001-1.035); Squamous Epithelial Cell,Urine 1 /hpf (0-5); Urobilinogen,Urine Negative mg/dL (0.0-1.0); WBC,Urine 14 /hpf (0-5)
[2025-02-28 15:47] LABS: Culture Indicated,Urine Yes
[2025-02-28 18:27] VITALS: BP 99/51; PULSE 73; RESP 19; TEMP 37.1; O2SAT 98
--- NOTE | 2025-02-28 19:35 | PC.NURSE ---
pt was rounded on, pt was repostioned given snacks.
[2025-02-28 20:29] VITALS: BP 103/60; PULSE 80; RESP 18; TEMP 36.9; O2SAT 99
--- NOTE | 2025-02-28 21:05 | PC.NURSE ---
pt was rounded on. pt stated he was fine and didnt want to be repostioned. pt said he wanted to rest while he could.
--- NOTE | 2025-02-28 23:02 | EDNOTE_ITS ---
Emergency Room Addendum <Sarah Jaime - Last Filed: 03/01/25 01:03> Addendum Narrative: 2300: Care assumed from Cheo Martin NP, (emergency mid-level provider). Past medical, surgical, social and family history reviewed. Vitals and home medications reviewed. Results and treatment plan discussed. I will assume the care of the patient at this time and will follow the patient, pending placement. Patient is pending SNF placement. Social work is already involved in the case. Patient case was discussed with hospitalist service was discussed with the on- call surgeon, no emergent surgical intervention required at this time. Patient is actively being treated for urinary tract infection. Patient is requiring placement in a [facility] home. 0600: Care assumed by Dr. Yoon (emergency physician). Past medical, surgical, social and family history reviewed. Vitals and home medications reviewed. Results and treatment plan discussed. They will assume the care of the patient at this time and will follow the patient, pending placement. <Diana Fortune MD - Last Filed: 03/01/25 00:23> Addendum Narrative: 2300: Care assumed from Cheo Martin NP, (emergency mid-level provider). Past medical, surgical, social and family history reviewed. Vitals and home medications reviewed. Results and treatment plan discussed. I will assume the care of the patient at this time and will follow the patient, pending placement. 0600: Care assumed by Dr. Yoon (emergency physician). Past medical, surgical, social and family history reviewed. Vitals and home medications reviewed. Results and treatment plan discussed. They will assume the care of the patient at this time and will follow the patient, pending placement. Patient is pending SNF placement. Social work is already involved in the case. Patient case was discussed with hospitalist service was discussed with the on- call surgeon, no emergent surgical intervention required at this time. Patient is actively being treated for urinary tract infection. Patient is requiring placement in a [facility] home.
[2025-02-28 23:26] VITALS: BP 90/49; PULSE 80; RESP 16; TEMP 36.8; O2SAT 95
--- NOTE | 2025-03-01 00:20 | PC.NURSE ---
pt was rounded on. pt wanted to cath himself, talk to nursing staff and vent about his life.
[2025-03-01] MEDS: PIPER/TAZO 3.375 GM PREMIX 3.375 GM/50 ML BAG IV (00:25)
--- NOTE | 2025-03-01 00:33 | PC.NURSE ---
Pt states he does not want to be taken care of until he leaves this hospital. pt was educated on the importance of using call light for help and states he will not use it, pt was educated on the importance of asking for help and denies help, pt was encourage to turn frequently, and state yvonne been taking care of my self for 37 years then went on to stay that he will stay in this position until he develops a bed sore. Documenting nurse stated to pt that we encourage as much self care as the patient can. pt then raised his voice at the nurse telling her to not come back until he is placed elsewhere. documenting nurse told pt that i will not accept this type of abusive behavior from the patient, and that this conversation will be documented. pt did not want this to be documented.
--- NOTE | 2025-03-01 02:05 | PC.NURSE ---
pt was rounded on, pt was repostioned and given food and snacks.
--- NOTE | 2025-03-01 04:00 | PC.NURSE ---
pt was rounded on and stated he was fine, please let him rest a little bit.
--- NOTE | 2025-03-01 04:20 | PC.NURSE ---
pt requested to self cath, pt sitting upright and eating at this time. pt provided with equipment
--- NOTE | 2025-03-01 06:22 | PC.NURSE ---
rounded on pt, pt asked to assist with repositioning, pt repostionioned and resting with eyes closed and comfortable.
[2025-03-01] MEDS: cefTRIAXone/D5w 1gm IV premix 1 GM/50 ML BAG IV (07:39)
--- NOTE | 2025-03-01 09:07 | PC.CC ---
Addendum 12:18 CRISTINA Bennett and OUMOU Felder met with patient at bedside due to social service consult, patient wanted to speak with a case planner. LISA and OUMOU met patient at bedside. CRISTINA Bennett and OUMOU met with patient at bedside, patient was appropriate when answering question, had good eye contact, oriented x 3. Patient appeared bathed and taking his medication. Patient was brought in after wound care provider felt that patient wound were to impacted for them to treat. Patient reports that he had to wait 3 weeks to receive wound care. Patient had been discharged from [facility] according to patient he was there for 1 month due to the inflections. Patient would like to go to SNF because he is not able to care for self. Patient states that friend was assisting him but feels that this will no longer be an option. Admitting doctor spoke with OUMOU and informed her that patient was not going to be admitted.
--- NOTE | 2025-03-01 09:18 | XR_ITS ---
Examination: CT pelvis without intravenous contrast. 2-D sagittal and coronal reconstructions. Date and time of exam: March 01, 2025, 0947 hours, comparison December 29, 2024 INDICATIONS: Nonhealing sores in the buttock sacral region 2 years CTDI: vol (mGy) : 6.91 DLP: (mGycm) : 219 Technique: Multiple 3 mm axial sections of the pelvis have been obtained with the 64 slice high resolution scanner. 2-D sagittal and coronal reconstructions. Low dose protocols were performed. One or more of the following dose reduction techniques were used; automated exposure control, adjustment of the mA and/or KV according to patient size, use of iterative reconstruction technique. Findings: Again noted osteomyelitis destroying the posterior spinous process L5, the soft tissue mass measuring 27 mm Again noted soft tissue defect posterior to the right iliac bone stable in configuration with sclerosis of the posterior right iliac bone consistent with osteomyelitis No change in large soft tissue defect posterior to the sacrum with cortical erosion involving posterior sacral segments No change in large soft tissue ulcer posterior to the right hip with osteomyelitis greater trochanter right hip There remains bone destruction involving the right ischium and right inferior pubic ramus There remains large soft tissue defect posterior to the left ischium this soft tissue defect is larger compared to the December 29, 2024 exam Rectal wall remains thickened Soft tissue infection posterior to the anus again noted although no soft tissue drainable abscess Urinary bladder wall thickening again noted IMPRESSION: Stable osteomyelitis destroying the posterior spinous process L5 Stable large soft tissue ulcer defect posterior to the right iliac bone with osteomyelitis posterior right iliac bone Stable soft tissue ulcer posterior to the sacrum with osteomyelitis posterior sacral segments Stable soft tissue ulcer posterior to the right hip with osteomyelitis greater trochanter right hip Stable significant osteomyelitis right ischium and right inferior pubic ramus Larger soft tissue ulcer posterior to the left ischium with no change in osteomyelitis left ischium Again noted soft tissue infection posterior to the anus, no perianal drainable abscess Unchanged cystitis pattern
--- NOTE | 2025-03-01 09:31 | PC.CC ---
Addendum entered by Christiano Fierro RN 03/01/25 11:21: 1120: spoke to Sabrina, she stated PT eval is still pending. Once completed, they will send off for SNF placement. HH ref was ordered as a second option if pt is not accepted to any SNF. Original Note: received HH ref for PT and SNF. reached out to ED email marketing coordinator to assist, left VM.
--- NOTE | 2025-03-01 09:44 | PC.CC ---
Addendum entered by Betty Thomas 03/01/25 18:19: Window Framer contacted Danielle from [facility]- updated acceptance to [facility] and DME for Hospital Bed. Danielle reported hospital bed will be transported at 1900. Window Framer will begin working on transport for client. Addendum entered by Betty Thomas 03/01/25 15:56: Window Framer spoke with Danielle of [facility], Pt has accepted placement at [facility]. Pt requested [facility] for Home Health. Danielle reported Pt will need transport to [facility] due to transport van only running Tue-. Danielle reported waiting for bed to be dropped off from friend in order for transport to be set up. Danielle will be contacting sports book writer with transport ETA. Addendum entered by Betty Thomas 03/01/25 14:18: Pt will not be admitted, insurance will not cover Pt. Window Framer had conversation with Pt, requesting [facility] reported he was recommended [facility] by a close friend who is currently a resident.Window Framer contacted [facility] and spoke with Danielle. Pt will like for Danielle to come and discuss placement options. Danielle and a adult protective caseworker will be coming to speak with Pt. Addendum entered by Betty Thomas 03/01/25 12:31: SNIF placement packet was submitted on [facility]. Original Note: ED Courier Driver confirmed with attending Doc Kashif Fortune Pt will not be admitted will need to go off secondary. Tong Castillo submitted referral for PT SNIF placement eval. PT note pending.
--- NOTE | 2025-03-01 10:57 | PD.EDADDENDU ---
Emergency Room Addendum <Priscila Dial - Last Filed: 03/01/25 16:24> Addendum Narrative: 0600: Care assumed from Dr. Fortune, the previous shift emergency physician. Past medical, surgical, social and family history reviewed. Vitals and home medications reviewed. I will assume the care of the patient at this time, pending evaluation for senior care facility placement. Please refer to the emergency department record for history and examination from initial visit.?The following addendum documentation note is intended to reflect any pending information, findings, or radiology results not included in the patient?s initial chart. 0900a: Made aware by social media content manager the patient would require a PT evaluation prior to placement to SNF. Also reports due to insurance, the patient may not qualify for direct placement from the ED without a 3 midnight hospitalization. Patient has been accepted at [facility]. 1600h: I checked on the patient, advised on CT results which appear stable compared to previous. I did speak with our surgeon Dr. Mandel. Discussed patients PMHx, HPI, ED course, exam findings, labs, and radiology results and she agrees with outpatient management with oral antibiotics. Will send the patient to [facility] with a prescription for Levaquin, Flagyl, and Doxycycline. Patient was also advised to continue wound care. <Odalis Yoon MD - Last Filed: 03/01/25 17:11> Addendum Narrative: 0600: Care assumed from Dr. Fortune, the previous shift emergency physician. Past medical, surgical, social and family history reviewed. Vitals and home medications reviewed. I will assume the care of the patient at this time, pending evaluation for senior care facility placement. Please refer to the emergency department record for history and examination from initial visit.?The following addendum documentation note is intended to reflect any pending information, findings, or radiology results not included in the patient?s initial chart. 0900a: Made aware by social media content manager the patient would require a PT evaluation prior to placement to SNF. Also reports due to insurance, the patient may not qualify for direct placement from the ED without a 3 midnight hospitalization. Patient has been accepted at [facility]. 1600h: I checked on the patient, advised on CT results which appear stable compared to previous. I did speak with our surgeon Dr. Kwock. Discussed patients PMHx, HPI, ED course, exam findings, labs, and radiology results and she agrees with outpatient management with oral antibiotics. Will send the patient to [facility] with a prescription for Levaquin, Flagyl, and Doxycycline. Patient was also advised to continue wound care. Diagnosis: chronic pelvis osteomyelitis, chronic sacral decubitus ulcers Dispo: Discharge to [facility]
[2025-03-01 11:23] VITALS: BMI 14.0
--- NOTE | 2025-03-01 11:46 | PC.PT ---
PT eval complete. Please see note for further detail.
--- NOTE | 2025-03-01 17:19 | PC.NURSE ---
PT REQUESTED CATH TO CATH SELF
--- NOTE | 2025-03-01 17:35 | PC.NURSE ---
PROVIDED CATH SUPPLIES TO SELF CATH
[2025-03-01 19:18] VITALS: BP 96/50; PULSE 86; RESP 20; TEMP 36.9; O2SAT 97
--- NOTE | 2025-03-01 19:19 | PC.NURSE ---
pt turned , repostioned, and offered snacks. Pt is happy and went back to sleep.
--- NOTE | 2025-03-01 20:10 | PC.NURSE ---
PT REQUESTING DRESSING ON BOTTOM CHANGED. EMS HERE AT BEDSIDE TO TRANSPORT PATIENT. SOILED ABD DRESSING REMOVED, PINK DRESSING APPLIED AND ABD PAD REAPPLIED.
--- NOTE | 2025-03-04 12:49 | PC.CC ---
LIQUEFIED NATURAL GAS PLANT OPERATOR received a call from [facility] to ask if patient had been discharge. LIQUEFIED NATURAL GAS PLANT OPERATOR reviewed patient chart and provided them with the information that patient had been discharge on 03/01 to [facility].
== END 2025-03-01 20:30 | disposition skilled nursing facility (03) ==
PROVIDERS: Nurse Practitioner Family; Emergency Provider Family Medicine; PCP Family Medicine
DX: L89.159 Pressure ulcer of sacral region, unspecified stage (principal); M86.68 Other chronic osteomyelitis, other site; G82.20 Paraplegia, unspecified; Z02.2 Encounter for examination for admission to residential institution
CPT/HCPCS: 36415; 71045; 72170; 72192; 80053; 81001; 83605; 83735; 84145; 85025; 87040; 87086; 96365; 96366; 99284; J0696; J2543